=== PATIENT | male | born 1965 | race Caucasian/White ===

== ENCOUNTER 2017-04-17 09:22 | Emergency (ER) | payer OTHER, BC ==
[2017-04-17] MEDS ORDERED: FAMOTIDINE 20 MG/50 ML 50 ML IV ONE ×2 (09:44→09:55)
[2017-04-17] MEDS ORDERED: SODIUM CHLORIDE 0.9% 1,000 ML IV ONE (09:44)
[2017-04-17] MEDS ORDERED: diphenhydrAMINE INJ 50 MG/ML VIAL IVP STA (09:44)
[2017-04-17] MEDS ORDERED: DEXAMETHASONE 10 MG/ML VIAL IVP STA (09:44)
--- NOTE | 2017-04-17 09:47 | ED Physician Documentation ---
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 felt something on his face, maybe a insect bite or sting became flushes, face swelling, lost his vision briefly, near syncope, [place] to ER with diffuse erythema and a swollen face but no lip tongue swelling or ANDREA , GI sx better occurred 35 min [employer] and pt feels he is improving Review of Systems Constitutional: denies: Fever, Chills Throat: denies: Sore throat Cardiac: denies: Chest pain / pressure Respiratory: denies: Dyspnea GI: denies: Abdominal Pain Skin: reports: Rash Neurologic: reports: Near syncope Endocrine: denies: Easy bruising / bleeding Immunocompromised: denies: Immunocompromised PD PAST MEDICAL HISTORY - Present Medications Home Medications: Ambulatory Orders Medication Instructions Recorded Confirmed Cetirizine [ZyrTEC] 10 mg PO DAILY PRN #5 tablet 04/17/17 Epinephrine [Epipen 2-Juan Jose] 0.3 mg IJ ONCE PRN #1 unit 04/17/17 predniSONE [Deltasone] 60 mg PO DAILY 5 Days 04/17/17 - Allergies Allergies/Adverse Reactions: Allergies Allergy/AdvReac Type Severity Reaction Status Date / Time hydrocodone Allergy Emesis Verified 04/17/17 09:43 PD ED PE NORMAL - Vitals Vital signs reviewed: Yes - General General: Alert and oriented X 3 - HEENT HEENT: PERRL, Other (swoolen face saritha periorbital, no retained stinger found) - Neck Neck: Supple, no meningeal sign - Cardiac Cardiac: RRR - Respiratory Respiratory: No respiratory distress, Clear bilaterally - Derm Derm: Other (diffuse erythema) - Neuro Neuro: Alert and oriented X 3 Results - Vitals Vitals: Vital Signs - 24 hr 04/17/17 04/17/17 09:30 10:11 Temperature 36.7 C 36.9 C Heart Rate 106 H 79 Respiratory 22 15 Rate Blood Pressure 117/85 H 140/86 H O2 Saturation 99 98 Oxygen O2 Source Room air - EKG (time done) 0943 Rate: Rate (enter#) (82) Rhythm: NSR [place]: Normal Intervals: Normal [place] Ischemia: Normal ST segments PD MEDICAL DECISION MAKING - ED course ED course: pt not needing epi given steroids benadryl pepcid better will dc Departure - Departure Disposition: Home, Self Care Clinical Impression: Angioedema Qualifiers: Encounter type: initial encounter Qualified Code(s): T78.3XXA - Angioneurotic edema, initial encounter Insect sting allergy, current reaction Qualifiers: Encounter type: initial encounter Injury intent: accidental or unintentional Qualified Code(s): T63.481A - Toxic effect of venom of other arthropod, accidental (unintentional), initial encounter Condition: Good Instructions: ED Bite Sting Insect Gen Allergic React Prescriptions: predniSONE [Deltasone] 60 mg PO DAILY 5 Days Epinephrine [Epipen 2-Juan Jose] 0.3 mg IJ ONCE PRN #1 unit PRN Reason: Anaphylaxis Cetirizine [ZyrTEC] 10 mg PO DAILY PRN #5 tablet PRN Reason: Allergy Symptoms Comments: Please follow up with your PMD for a recheck tomorrow Also get your blood pressure rechecked and discuss a 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
[2017-04-17] MEDS ORDERED: SODIUM CHLORIDE FLUSH 0.9% 10 ML SYRINGE IVP ONE (09:52)
[2017-04-17] MEDS ORDERED: DEXAMETHASONE 10 MG/ML VIAL ONE (09:55)
[2017-04-17] MEDS ORDERED: diphenhydrAMINE INJ 50 MG/ML VIAL ONE (09:55)
[2017-04-17 11:14] VITALS: BP 154/88
== END 2017-04-17 11:16 | disposition home or self-care (01) ==
LOC: ED 09:22
DX: T78.3XXA Angioneurotic edema, initial encounter (principal); T63.481A Toxic effect of venom of other arthropod, accidental (unintentional), initial encounter; X58.XXXA Exposure to other specified factors, initial encounter; Y93.H2 Activity, gardening and landscaping
CPT/HCPCS: 93005; 96374; 96375; 99283; 99284